=== PATIENT | male | born 1985 | race Caucasian/White ===

== ENCOUNTER 2023-07-07 19:23 | Emergency (ER) | payer OTHER ==
[2023-07-07 19:48] VITALS: RESP 18
--- NOTE | 2023-07-07 19:59 | ED ---
General Adult HPI - General Source: patient, family, RN notes reviewed Mode of arrival: ambulatory Limitations: no limitations <Louisa Martinez - Last Filed: 07/07/23 20:01> <Radha Krueger - Last Filed: 07/08/23 04:31> <Pawan Callejas - Last Filed: 07/08/23 15:18> - General Chief complaint: Psychiatric Symptoms Stated complaint: Mental Health Time Seen by Provider: 07/07/23 20:01 - History of Present Illness Initial comments: Quick note: 38-year-old male presents to the emergency department for evaluation of alcohol abuse, mental health concerns. Patient reports that he drinks about a case of beer daily, his last drink was around 6 PM today. He is accompanied by family who is concerned for his mental health. Patient denies suicidal or homicidal ideation. (Louisa Martinez) 28-year-old male presenting for mental health duration. Patient is a daily drinker, drinks about a case of beer per day. His last drink was around 6 PM earlier today. He states that he cannot stop drinking and is his goal to stop. He states that he is concerned that he may start withdrawing. Family also expresses concern for his mental health. Patient denies any suicidal or homicidal ideation. He admits to anxiety and "shakiness". He is having no chest pain, difficulty breathing, nausea, vomiting, abdominal pain, dizziness, palpitations. (Radha Krueger) - Related Data Home Medications Medication Instructions Recorded Confirmed Timolol 0.5% Ophth Soln [Timoptic 1 drop RIGHT EYE BID 07/08/23 07/08/23 0.5% Ophth Soln] Allergies Allergy/AdvReac Type Severity Reaction Status Date / Time hydromorphone [From Dilaudid] Allergy Itching Verified 07/08/23 09:41 Review of Systems ROS Other: All systems not noted in ROS Statement are negative. <Louisa Martinez - Last Filed: 07/07/23 20:01> ROS Other: All systems not noted in ROS Statement are negative. <Radha Krueger - Last Filed: 07/08/23 04:31> ROS Other: All systems not noted in ROS Statement are negative. <Pawan Callejas - Last Filed: 07/08/23 15:18> ROS Statement: Those systems with pertinent positive or pertinent negative responses have been documented in the HPI. Past Medical History Additional Past Medical History / Comment(s): ETOH abuse History of Any Multi-Drug Resistant Organisms: None Reported Past Surgical History: Bowel Resection Additional Past Surgical History / Comment(s): Corneal transplant right eye Past Psychological History: Anxiety, Depression Smoking Status: Current every day smoker Past Alcohol Use History: Heavy Past Drug Use History: None Reported <Louisa Martinez - Last Filed: 07/07/23 20:01> General Exam Limitations: no limitations <Louisa Martinez - Last Filed: 07/07/23 20:01> Limitations: no limitations General appearance: alert, in no apparent distress Head exam: Present: atraumatic, normocephalic Eye exam: Present: normal appearance, EOMI Neck exam: Present: normal inspection. Absent: meningismus Respiratory exam: Present: normal lung sounds bilaterally. Absent: respiratory distress, wheezes, rales, rhonchi, stridor Cardiovascular Exam: Present: regular rate, normal rhythm, normal heart sounds. Absent: systolic murmur, diastolic murmur, rubs, gallop, clicks Neurological exam: Present: alert, oriented X3 Psychiatric exam: Present: normal affect, normal mood Skin exam: Present: warm, dry <Radha Krueger - Last Filed: 07/08/23 04:31> - General Exam Comments Initial Comments: Visual Physical Exam Vital signs reviewed General: Well-appearing, nontoxic, no acute distress. Head: Normocephalic, atraumatic Eyes: PERRLA, EOMI ENT: Airway patent Chest: Nonlabored breathing Skin: No visual rash, normal skin tone Neuro: Alert and oriented 3 Musculoskeletal: No gross abnormalities (Louisa Martinez) Course Vital Signs 07/07/23 07/08/23 07/08/23 19:42 00:42 01:41 Temperature 97.9 F Pulse Rate 102 H 90 87 Respiratory 18 18 18 Rate Blood Pressure 144/102 140/92 142/88 O2 Sat by Pulse 98 96 89 L Oximetry 07/08/23 10:21 Temperature 98.7 F Pulse Rate 85 Respiratory 18 Rate Blood Pressure 152/91 O2 Sat by Pulse 98 Oximetry Medical Decision Making <Louisa Martinez - Last Filed: 07/07/23 20:01> <Radha Krueger - Last Filed: 07/08/23 04:31> <Pawan Callejas - Last Filed: 07/08/23 15:18> - Medical Decision Making Quick note preformed and electronically by Louisa Martinez PA-C (Louisa Martinez) Was pt. sent in by a medical professional or institution (, [facility], INSURANCE CASE MANAGER, urgent care, hospital, or penitentiary...) When possible be specific @ -[No] Did you speak to anyone other than the patient for history (EMS, parent, family, police, friend...)? What history was obtained from this source @ -[No] Did you review nursing and triage notes (agree or disagree)? Why? @ -[I reviewed and agree with nursing and triage notes] Were old charts reviewed (outside hosp., previous admission, EMS record, old EKG, old radiological studies, urgent care reports/EKG's, penitentiary records)? Report findings @ -[No old charts were reviewed] Differential Diagnosis (chest pain, altered mental status, abdominal pain women, abdominal pain men, vaginal bleeding, weakness, fever, dyspnea, syncope, headache, dizziness, GI bleed, back pain, seizure, CVA, palpatations, mental health, musculoskeletal)? @ -Differential Mental Health Depression, anxiety, bipolar, psychosis, schizophrenia, borderline personality, situational depression, adjustment disorder, behavioral disorder, brain tumor, malingering, substance abuse, encephalopathy, medication reaction, dementia, hypothyroidism, degenerative neurologic disorder, lupus.... This is not meant to be all-inclusive list EKG interpreted by me (3pts min.). @ -[As above] X-rays interpreted by me (1pt min.). @ -[None done] CT interpreted by me (1pt min.). @ -[None done] U/S interpreted by me (1pt. min.). @ -[None done] What testing was considered but not performed or refused? (CT, X-rays, U/S, labs)? Why? @ -[None] What meds were considered but not given or refused? Why? @ -[None] Did you discuss the management of the patient with other professionals (dianne araiza i.e. , [facility], INSURANCE CASE MANAGER, lab, RT, psych nurse, social security assessor, data modeling specialist, teacher, accounting officer, field case manager)? Give summary @ -[No] Was smoking cessation discussed for >3mins.? @ -[No] Was critical care preformed (if so, how long)? @ -[No] Were there social determinants of health that impacted care today? How? (Homelessness, low income, unemployed, alcoholism, drug addiction, transportation, low edu. Level, literacy, decrease access to med. care, long term, rehab)? @ -[No] Was there de-escalation of care discussed even if they declined (Discuss DNR or withdrawal of care, Hospice)? DNR status @ -[No] What co-morbidities impacted this encounter? (DM, HTN, Smoking, COPD, CAD, Cancer, CVA, ARF, Chemo, Hep., AIDS, mental health diagnosis, sleep apnea, morbid obesity)? @ -Alcoholism Was patient admitted / discharged? Hospital course, mention meds given and route, prescriptions, significant lab abnormalities, going to OR and other pertinent info. @ -38-year-old male with history of alcoholism presenting for mental health evaluation. States that he cannot stop drinking and wants help. No suicidal or homicidal ideation. Negative urine drug screen. Breath alcohol level is 0.089. He is signed out to my attending. (Radha Krueger) Patient signed out to me pending evaluation by EPS. Was medically cleared by prior provider. [facility] evaluated the patient. Patient does not meet inpatient criteria. Will be discharged home with resources. Diagnosis/symptom? @ -Encounter for psychiatric evaluation Acute, or Chronic, or Acute on Chronic? @ -Acute Uncomplicated (without systemic symptoms) or Complicated (systemic symptoms)? @ -Uncomplicated Side effects of treatment? @ -None Exacerbation, Progression, or Severe Exacerbation] @ -No Poses a threat to life or bodily function? @ -Unlikely (Paawn Callejas) - Lab Data Lab Results 07/07/23 Range/Units 20:11 Urine Opiates Screen Not Detected (NotDetected) Ur Oxycodone Screen Not Detected (NotDetected) Urine Methadone Screen Not Detected (NotDetected) Ur Barbiturates Screen Not Detected (NotDetected) U Tricyclic Antidepress Not Detected (NotDetected) Ur Phencyclidine Scrn Not Detected (NotDetected) Ur Amphetamines Screen Not Detected (NotDetected) U Methamphetamines Scrn Not Detected (NotDetected) U Benzodiazepines Scrn Not Detected (NotDetected) Urine Cocaine Screen Not Detected (NotDetected) U Marijuana (THC) Screen Not Detected (NotDetected) Disposition <Louisa Martinez - Last Filed: 07/07/23 20:01> <Radha Krueger - Last Filed: 07/08/23 04:31> Is patient prescribed a controlled substance at d/c from ED?: No Time of Disposition: 09:45 <Pawan Callejas - Last Filed: 07/08/23 15:18> Clinical Impression: Encounter for psychiatric assessment Disposition: HOME SELF-CARE Condition: Good Additional Instructions: follow resources Referrals: None,Stated [Primary Care Provider] - 1-2 days
[2023-07-07 20:36] LABS: Amphetamine Screen,Urine Not Detected (NotDetected); Barbiturate Screen,Urine Not Detected (NotDetected); Benzodiazepines Screen,Urine Not Detected (NotDetected); Cocaine Screen,Urine Not Detected (NotDetected); Methadone Screen, Urine Not Detected (NotDetected); Opiate Screen,Urine Not Detected (NotDetected); Oxycodone Screen, Urine Not Detected (NotDetected); Phencyclidine Screen,Urine Not Detected (NotDetected); Tricyclic Antidepressant,Urine Not Detected (NotDetected); Urn Cannabinoid Scrn Not Detected (NotDetected)
[2023-07-08] MEDS ORDERED: LORazepam 2 MG/ML INJ IV PRN ×3 (00:14)
[2023-07-08 10:56] VITALS: BP 152/91; PULSE 85; TEMP 98.7
[2023-07-09] MEDS ORDERED: THIAMINE 100 MG TAB PO SCH (09:00)
== END 2023-07-08 10:22 | disposition home or self-care (01) ==
LOC: EC 19:23
DX: Z00.8 Encounter for other general examination (principal); F10.20 Alcohol dependence, uncomplicated; F17.200 Nicotine dependence, unspecified, uncomplicated; Z88.5 Allergy status to narcotic agent
CPT/HCPCS: 80306; 82075; 99285